=== PATIENT | female | born 1955 | race African-American/Black ===

== ENCOUNTER 2018-07-02 06:41 | Day surgery (SDC) | payer MEDICAID ==
[~2018-07-02] VITALS: Ht 167.6 cm; Wt 82.6 kg
[~2018-07-02 06:41] MED LIST: BALANCED SALT IRRIG SOLN COMB2 500ML OP ONE
[2018-07-02] MEDS ORDERED: PHENYLEPHRINE HCL 10% OPHTH DROPS 5ML LEFTEYE SCH (07:00)
[2018-07-02] MEDS ORDERED: TROPICAMIDE 1% OPHTH DROPS 15ML LEFTEYE SCH (07:00)
[2018-07-02] MEDS ORDERED: CYCLOPENTOLATE HCL 1% OPHTH DROPS 2ML LEFTEYE SCH (07:00)
[2018-07-02] MEDS ORDERED: LACTATED RINGERS 1,000 ML IV SCH (08:45)
[2018-07-02] MEDS ORDERED: HYALURONATE SODIUM 14 MG/ML 0.85ML SYRINGE IO ONE (08:53)
[2018-07-02] MEDS ORDERED: MIDAZOLAM HCL 2 MG/2 ML VIAL ONE (09:10)
[2018-07-02] MEDS ORDERED: PROPOFOL 200MG/20ML VIAL IV ONE (09:10)
[2018-07-02] MEDS ORDERED: LIDOCAINE HCL 1% 20ML VIAL (Pyxis) INJ ONE (09:11)
[2018-07-02] MEDS ORDERED: ONDANSETRON HCL 4MG/2ML INJ IV PRN (09:45)
[2018-07-02] MEDS ORDERED: KETOROLAC 30MG/ML VIAL IV PRN (09:45)
[2018-07-02] MEDS ORDERED: ASPI-1159 PO (10:11)
[2018-07-02] MEDS ORDERED: MONT5TAB13 PO (10:11)
[2018-07-02] MEDS ORDERED: AMLO10TA80 PO (10:11)
[2018-07-02] MEDS ORDERED: SIMV5TAB53 PO (10:11)
[2018-07-02] MEDS ORDERED: FAMO40TA70 PO (10:11)
[2018-07-02] MEDS ORDERED: ALBU90AE IH (10:11)
[2018-07-02] MEDS ORDERED: BALANCED SALT IRRIG SOLN 15ML ONE (15:04)
[2018-07-02] MEDS ORDERED: TROPICAMIDE 1% OPHTH DROPS 15ML ONE (15:04)
[2018-07-02] MEDS ORDERED: LIDOCAINE HCL 2%/EPINEPHRINE 1:100,000 20 ML VIAL INFIL ONE (15:04)
[2018-07-02] MEDS ORDERED: NEO/POLYMYX B SULF/DEXAMETH OPHTH OINT 3.5GM ONE (15:04)
[2018-07-02] MEDS ORDERED: BUPIVACAINE HCL/PF 0.75% (7.5MG/ML) 10ML ONE (15:04)
[2018-07-02] MEDS ORDERED: TETRACAINE 0.5% OPHTH DROPS 4ML ONE (15:04)
[2018-07-02] MEDS ORDERED: PHENYLEPHRINE HCL 10% OPHTH DROPS 5ML ONE (15:04)
[2018-07-02] MEDS ORDERED: CYCLOPENTOLATE HCL 1% OPHTH DROPS 2ML ONE (15:04)
[2018-07-02] MEDS ORDERED: LIDOCAINE HCL/PF 2% 20 MG/ML 10ML VIAL ONE (15:04)
[2018-07-02] MEDS ORDERED: OFLOXACIN 0.3% OPHTH SOLN 5ML ONE (15:15)
== END 2018-07-02 11:00 | disposition home or self-care (01) ==
LOC: OR 06:41
PROVIDERS: ATTEND Ophthalmology
DX: H25.012 Cortical age-related cataract, left eye (principal); K21.9 Gastro-esophageal reflux disease without esophagitis; I10 Essential (primary) hypertension; J45.909 Unspecified asthma, uncomplicated; R73.03 Prediabetes; J42 Unspecified chronic bronchitis; Z79.899 Other long term (current) drug therapy; Z90.710 Acquired absence of both cervix and uterus
CPT/HCPCS: 66984; 82962; J2250; J3490; J7120; V2632; J2704